=== PATIENT | male | born 1965 | race Caucasian/White ===

== ENCOUNTER → 2024-12-19 10:03 | Outpatient (BNVA) | payer BC, SELFPAY | PROVIDERS: PCP Family Medicine; Visit Provider Family Medicine | DX: R39.9 Unspecified symptoms and signs involving the genitourinary system (principal); Z12.5 Encounter for screening for malignant neoplasm of prostate; R35.0 Frequency of micturition; R81 Glycosuria; I10 Essential (primary) hypertension | CPT/HCPCS: 80053; 81000; 83036; 84153 ==

== ENCOUNTER 2025-01-15 07:47 | Day surgery (SDC) | payer BC, SELFPAY ==
[2025-01-15 08:07] VITALS: BP 144/93; PULSE 73; RESP 18; TEMP 36.6; O2SAT 97; BMI 32.2
--- NOTE | 2025-01-15 08:37 | ANES.PREANE2 ---
Pre-Anesthetic Assessment Height/Weight: Height 1.7 m Weight 93.44 kg Temp Pulse Resp BP Pulse Ox O2 Del Method 97.8 F 73 18 144/93 97 Room Air 01/15/25 08:07 01/15/25 08:07 01/15/25 08:07 01/15/25 08:07 01/15/25 08:07 01/15/25 08:07 Preop Diagnosis: Screen Operation Date: 01/15/25 09:30 Proposed Procedures p Colonoscopy 58781 G0121 Z12.11(Not Applicable) - Monico Feng MD Familial anesthetic complications: none Was Beta Brock taken within 24 hours: Yes Was Clonidine taken within 24 hours: N/A Last intake: Intake Last Liquid Date 01/14/25 Last Liquid Time 20:00 Last Solid Date 01/13/25 Last Solid Time 20:00 Social No alcohol and No tobacco Exam alert, oriented x 3, clear to auscultation bilaterally and regular rate & rhythm Airway Mallampati: Class II Dentition: full Pulmonary None reported CV/HEM Hypertension and Myocardial Infarction (x3 vessel bypass, x2 stents since bypass, last one in 2023.) sees cardiology regularly, recently established with PCP who found A1C to be 11, managed with metformin BG preop 136. >4METS None reported Hepatic None reported GI None reported Metabolic Diabetes Mellitus, Hyperlipidemia and Morbid Obesity [facility] None reported Neuropsych None reported Anesthetic Plan ASA status: 3 Anesthesia: MAC Risk of > 500 ml blood loss (7ml/kg in children): No Medications/Allergies Home Medications ?Medication ?Instructions ?Recorded ?Confirmed ?Last Taken ?Type atorvastatin 80 mg tablet (Lipitor) 80 mg PO DAILY 12/04/24 01/15/25 01/14/25 History clopidogrel 75 mg tablet 75 mg PO DAILY 12/04/24 01/15/25 01/07/25 History krill 300 mg-omega-3 90 mg-dha 27 1 cap PO DAILY 12/04/24 01/15/25 01/14/25 History mg-epa 45 [id number]-vmuzvcs capsule metoprolol succinate 50 mg 50 mg PO DAILY 12/04/24 01/15/25 01/15/25 History tablet,extended release 24 hr omeprazole 20 mg capsule,delayed 20 mg PO DAILY PRN acid reflux #90 12/04/24 01/15/25 01/14/25 Rx release caps spironolactone 25 mg tablet 25 mg PO DAILY 12/04/24 01/15/25 01/14/25 History valsartan 320 mg tablet 320 mg PO DAILY 12/04/24 01/15/25 01/14/25 History aspirin 81 mg tablet 81 mg PO DAILY 12/19/24 01/07/25 01/07/25 History metformin 500 mg tablet,extended 1,000 mg (2 x 500 mg) PO BID #120 12/20/24 01/15/25 01/14/25 Rx release 24 hr (Glucophage XR) tabs Allergies Allergy/AdvReac Type Severity Reaction Status Date / Time No Known Allergies Allergy Unverified 01/15/25 08:06 Current Medications Generic Name Dose Route Start Last Admin Trade Name Freq PRN Reason Stop Dose Admin Sodium Chloride 1,000 mls @ 15 mls/hr 01/15/25 07:54 01/15/25 08:21 Sodium Chloride 0.9% IV 01/16/25 07:53 15 mls/hr .Q24H PRN Administration COLONOSCOPY FLUIDS PFSH Anesthesia Medical History (Updated 12/20/24 @ 12:22 by Daren Warren MD) Type 2 diabetes mellitus GERD (gastroesophageal reflux disease) Muscle cramps Obesity (BMI 30.0-34.9) Presence of stent in coronary artery in patient with coronary artery disease HLD (hyperlipidemia) Hypertension Hx of myocardial infarction Surgical History S/P triple vessel bypass History of intravascular stent placement Family History Father Congestive heart failure (CHF) Congenital heart disease Mother Stroke Social History Smoking and tobacco/nicotine status: never used tobacco/nicotine Alcohol intake: current Alcohol intake frequency: holidays/special occasions only Substance/Drug Use: never
--- NOTE | 2025-01-15 08:59 | W.PM.OPSUD ---
Surgery/Procedure H&P Update DATE OF PROCEDURE: January 15, 2025 DATE H&P PERFORMED: 12/12/24 H&P UPDATE INFORMATION: I have reviewed H&P completed within last 30 days, I have examined patient prior to procedure, No changes to prior documentation and Risks and benefits of the procedure reviewed PREOP DIAGNOSIS: Screen PLANNED PROCEDURE: Operation Date: 01/15/25 09:30 Proposed Procedures p Colonoscopy 26996 G0121 Z12.11(Not Applicable) - Monico Feng MD
[2025-01-15 09:15] VITALS: BP 101/73; PULSE 72; RESP 16; TEMP 36.1; O2SAT 94
[2025-01-15 09:42] VITALS: BP 121/80; PULSE 69; RESP 18; O2SAT 95
--- NOTE | 2025-01-15 09:55 | ANE.PACU2 ---
Inpatient post-anesthesia follow up: Airway intact: Yes Vital signs: Temperature 97 F Pulse Rate 69 Respiratory Rate 18 Blood Pressure 121/80 Pulse Oximetry 95 Oxygen Delivery Me thod Room Air Oxygen Flow Rate Fraction of Inspir ed Oxygen Hydration adequate: Yes Nausea and vomiting: No Pain level: 1 Mental status: Baseline
== END 2025-01-15 09:55 | disposition home or self-care (01) ==
PROVIDERS: PCP Family Medicine; Visit Provider Student in an Organized Health Care Education/Training Program
PROC: 0DJD8ZZ Inspection of Lower Intestinal Tract, Via Natural or Artificial Opening Endoscopic (ICD-10-PCS; CPT 45378; principal; 2025-01-15 09:30)
DX: Z12.11 Encounter for screening for malignant neoplasm of colon (principal); Z79.02 Long term (current) use of antithrombotics/antiplatelets; K21.9 Gastro-esophageal reflux disease without esophagitis; E11.9 Type 2 diabetes mellitus without complications; E66.01 Morbid (severe) obesity due to excess calories; Z68.32 Body mass index [BMI] 32.0-32.9, adult; Z95.5 Presence of coronary angioplasty implant and graft; E78.5 Hyperlipidemia, unspecified; I10 Essential (primary) hypertension; I25.2 Old myocardial infarction; Z79.82 Long term (current) use of aspirin; Z79.84 Long term (current) use of oral hypoglycemic drugs
CPT/HCPCS: 36416; 45378; 82962; J2704; J7030